=== PATIENT | male | born 1970 | race Caucasian/White ===

== ENCOUNTER 2018-02-16 19:34 | Emergency (ER) | payer OTHER ==
[~2018-02-16] VITALS: Ht 177.8 cm; Wt 145.1 kg
[~2018-02-16 19:34] MED LIST: CATAPRES0.1 MG PO; COREG6.25 MG PO; CORICIDIN HBP C1 TA1 PO; GLUCOPHAGE500 M1 PO; HYDROCHLOROTHIA25 M1 PO; K-TAB20 MEQ PO; LASIX40 MG PO; LIPITOR80 MG PO; ZESTRIL40 MG PO
[2018-02-16] MEDS ORDERED: FLONASE ALLERG9.9 ML NAS (19:52)
[2018-02-16] MEDS ORDERED: AMOXICILLIN500 M2 PO (19:52)
[2018-02-16] MEDS ORDERED: AUGMENTIN 875875 MG PO (19:55)
== END 2018-02-16 20:04 | disposition home or self-care (01) ==
LOC: ED 19:34
DX: H66.001 Acute suppurative otitis media without spontaneous rupture of ear drum, right ear (principal); J32.9 Chronic sinusitis, unspecified; Z79.899 Other long term (current) drug therapy

== ENCOUNTER 2018-05-01 21:43 | Emergency (ER) | payer OTHER ==
[~2018-05-01] VITALS: Ht 175.2 cm; Wt 149.7 kg
[~2018-05-01 21:43] MED LIST changes: +AMOXICILLIN500 M2 PO; +AUGMENTIN 875875 MG PO; +FLONASE ALLERG9.9 ML NAS
[2018-05-01] MEDS ORDERED: LYRICA75 M1 PO (21:58)
[2018-05-01] MEDS ORDERED: METFORMIN HYD1000 MG PO (21:58)
[2018-05-01] MEDS ORDERED: JANUVIA100 MG PO (21:58)
[2018-05-01] MEDS ORDERED: FENOFIBRATE MI134 MG PO (21:58)
[2018-05-01] MEDS ORDERED: AMLODIPINE BESYL5 MG PO (21:59)
== END 2018-05-02 00:10 | disposition home or self-care (01) ==
LOC: ED 21:43
DX: M54.5 Low back pain (principal); Z79.84 Long term (current) use of oral hypoglycemic drugs; Z79.899 Other long term (current) drug therapy

== ENCOUNTER 2019-10-22 10:18 | Emergency (ER) | payer MEDICAID ==
[~2019-10-22] VITALS: Ht 175.2 cm; Wt 145.1 kg
[~2019-10-22 10:18] MED LIST changes: +AMLODIPINE BESYL5 MG PO; +FENOFIBRATE MI134 MG PO; +JANUVIA100 MG PO; +LYRICA75 M1 PO; +METFORMIN HYD1000 MG PO
[2019-10-22] MEDS ORDERED: NAPROSYN500 MG PO (11:05)
[2019-10-22] MEDS ORDERED: METHOCARBAMOL500 M1 PO (11:05)
[2019-10-23] MEDS ORDERED: MEDROL DOSEPAK4 MG PO (20:58)
== END 2019-10-22 11:13 | disposition home or self-care (01) ==
LOC: ED 10:18
DX: S39.012A Strain of muscle, fascia and tendon of lower back, initial encounter (principal); I10 Essential (primary) hypertension; E11.9 Type 2 diabetes mellitus without complications; E78.00 Pure hypercholesterolemia, unspecified; M19.90 Unspecified osteoarthritis, unspecified site; G89.29 Other chronic pain; Z79.899 Other long term (current) drug therapy; Z79.84 Long term (current) use of oral hypoglycemic drugs; X50.1XXA Overexertion from prolonged static or awkward postures, initial encounter; Y93.89 Activity, other specified; Y92.89 Other specified places as the place of occurrence of the external cause; Y99.8 Other external cause status

== ENCOUNTER 2019-10-23 19:04 | Emergency (ER) | payer MEDICAID ==
[~2019-10-23] VITALS: Ht 177.8 cm; Wt 145.1 kg
[~2019-10-23 19:04] MED LIST changes: +METHOCARBAMOL500 M1 PO; +NAPROSYN500 MG PO
[2019-10-23] MEDS ORDERED: MEDROL DOSEPAK4 MG PO (20:58)
== END 2019-10-23 21:03 | disposition home or self-care (01) ==
LOC: ED 19:04
DX: M54.5 Low back pain (principal); M62.830 Muscle spasm of back; G89.29 Other chronic pain; I10 Essential (primary) hypertension; E78.00 Pure hypercholesterolemia, unspecified; E11.9 Type 2 diabetes mellitus without complications; Z79.899 Other long term (current) drug therapy

== ENCOUNTER 2021-09-17 10:13 | Emergency (ER) | payer MEDICAID ==
[~2021-09-17] VITALS: Wt 150.6 kg
[~2021-09-17 10:13] MED LIST changes: +MEDROL DOSEPAK4 MG PO
[2021-09-17 11:54] LABS: BASO % 0.3 % (0.0-1.0); EOS # 0.1 10*3/uL (0.0-0.4); EOS % 0.4 % (1.0-4.0); HEMATOCRIT 45.7 % (42.0-52.0); LYMPH # 1.4 10*3/uL (1.3-4.4); MEAN CELL VOLUME 93.1 fl (80.0-94.0); MEAN CORPUSCULAR HGB 31.6 pg (27.0-31.0); MEAN CORPUSCULAR HGB CONC 33.9 g/dl (33.0-37.0); MEAN PLATELET VOLUME 10.1 fl (9.6-12.3); MONO % 8.8 % (3.0-9.0); NEUT # 9.2 10*3/uL (2.3-7.9); NEUT % 78.2 % (47.0-73.0); PLATELET COUNT AUTOMATED 297 10*3/uL (130-400); RED BLOOD COUNT 4.91 10*6/uL (4.50-5.90); RED CELL DISTRI WIDTH 12.5 % (0-14.5); WHITE BLOOD COUNT 11.8 10*3/uL (4.8-10.8)
[2021-09-17 12:06] LABS: ACT PARTIAL THROMBO TIME 27.7 SECONDS (20.0-32.1); INTERNATIONAL NORM RATIO 1.1 (2.0-3.5)
[2021-09-17 12:07] LABS: ALBUMIN 3.5 gm/dl (3.1-4.5); ALKALINE PHOSPHATASE 86 U/L (45-117); BUN 27 mg/dl (7-24); CHLORIDE 101 mmol/L (98-107); CREATININE 1.32 mg/dL (0.70-1.30); LIPASE 70 U/L (73-393); POTASSIUM 3.9 mmol/L (3.5-5.1); SGOT/AST 12 IU/L (3-35); SGPT/ALT 24 U/L (12-78); SODIUM 135 mmol/L (136-145); TOTAL PROTEIN 8.7 gm/dL (6.4-8.2)
[2021-09-17 12:11] LABS: TROPONIN I < 0.015 ng/ml (<0.045)
[2021-09-17] MEDS ORDERED: PREDNISONE50 MG PO (14:03)
[2021-09-17] MEDS ORDERED: ZITHROMAX250 MG PO (14:03)
== END 2021-09-17 14:25 | disposition home or self-care (01) ==
LOC: ED 10:13
PROVIDERS: Emergency Medicine
DX: J20.9 Acute bronchitis, unspecified (principal); Z20.822 Contact with and (suspected) exposure to COVID-19; J32.9 Chronic sinusitis, unspecified; Z79.899 Other long term (current) drug therapy